=== PATIENT | male | born 1930 | race Caucasian/White ===

== ENCOUNTER 2016-04-27 08:33 | Outpatient (CLI) | payer OTHER ==
--- NOTE | 2016-04-27 11:44 | DIAGNOSTIC IMAGING REPORT ---
PROCEDURE: CT LUMBAR SPINE W/O CONTRAST INDICATION: INCREASE WEAKNESS; DIFFICULTY AMBULATORY TECHNIQUE: Noncontrast axial images with sagittal and coronal reformations. COMPARISON: None available FINDINGS: At L3-4 and L4-5 there is severe spinal stenosis with obliteration of the spinal canal secondary to disc bulge anteriorly and hypertrophy of the posterior elements and ossification of the ligamentum flava. At L2-3 and L5-S1 there is severe canal compromise with retrolisthesis at both levels and hypertrophy of the posterior elements and ligaments with obliteration of the lateral recesses bilaterally. At L1-2 there is a mild annular bulge and hypertrophy of the posterior elements. IMPRESSION: 1. Severe spinal stenosis of with obliteration of spinal canal at the L 3-4 and L4-5. 2. Moderate stenosis at the L2-3 and L5-S1.
== END 2016-04-27 23:00 ==
LOC: CT SRH 08:33 → MRI SRH 09:00 → CT SRH 09:00 → MRI SRH 05-05 15:30
DX: M48.06 Spinal stenosis, lumbar region (principal); M48.07 Spinal stenosis, lumbosacral region

== ENCOUNTER 2016-07-28 14:41 | Emergency (ER) | payer OTHER ==
--- NOTE | 2016-07-28 16:14 | DIAGNOSTIC IMAGING REPORT ---
PROCEDURE: CT ABDOMEN/PELVIS W/O CONTRAST INDICATION: Sudden onset right upper quadrant pain. TECHNIQUE: Noncontrast axial images were obtained of the entire abdomen and pelvis with sagittal and coronal reformations. COMPARISON: None. FINDINGS: ABDOMEN: Lung base are clear. Mild cardiomegaly. Coronary atherosclerosis. Liver measures 15.9 cm with irregular contour and parenchymal inhomogeneity. Spleen measures 10.8 cm. Mild ascites. There are several calcified gallstones, largest of 1.4 cm. The pancreas, adrenal glands and right kidney are normal. Left renal atrophy with several nonobstructing calculi (one - 7 mm). 1.8 cm left renal cyst. Severe atherosclerosis of the aorta and origin of the SMA. Shotty periaortic lymph nodes. Obstipation. Anasarca. PELVIS: Normal appendix. Mild sigmoid diverticulosis. Enlarged prostate (5.5 cm). Normal bladder. Status post right inguinal herniorrhaphy. Severe degenerative changes of the spine. Moderate to severe spinal stenosis from L2-3 to L5-S1. IMPRESSION: 1. Irregular liver contour with mild ascites suggestive of cirrhosis. Liver parenchyma is inhomogeneous and ultrasound of the liver is recommend for further evaluation. The patient is apparently on dialysis which may also account for the free fluid. 2. Cholelithiasis 3. Left renal atrophy with several nonobstructing renal calculi 4. Severe atherosclerosis of the aorta and SMA 5. Anasarca.. This may be secondary to liver disease, renal disease and low albumin 6. Mild sigmoid diverticulosis 7. Obstipation 8. Results discussed with Dr. Joseph All CT scans at this facility use dose modulation, iterative reconstruction, and/or weight-based dosing when appropriate to reduce radiation dose to as low as reasonably achievable.
--- NOTE | 2016-07-28 17:01 | DIAGNOSTIC IMAGING REPORT ---
PROCEDURE: US ABDOMEN ULTRASOUND-LIMITED INDICATION: ABNORMAL LFT TECHNIQUE: Walker scale and color Doppler sonographic images of the abdomen were obtained without comparison. COMPARISON: Abdominal CT 07/28/2016 FINDINGS: The liver is normal in size, contour, and echotexture. No mass or intrahepatic biliary dilatation. The gallbladder contains multiple large mobile stones. The wall is thick measuring 3.4 mm. Positive Hayes's sign. The extrahepatic common duct is normal measuring 5.2 mm The visualized pancreas is normal without ductal dilatation or peripancreatic fluid collection. The retrohepatic inferior vena cava is patent. There is appropriate hepatopetal flow in the portal vein. The right kidney measures 11.1 cm in length. There is ascites. IMPRESSION: 1. Cholelithiasis. 2. Ascites
--- NOTE | 2016-07-28 17:47 | ED ORDER SUMMARY ---
..... Patient: BRAYAN CXO OrderSheet [facility] VisitID: [id number] [place] [address] 86y, M Registration Date/Time: 07/28/2016 ORDER SHEET Weight: 90.7 kg (stated) Allergies: Vasotec GENERAL ORDERS: CT Abd/Pel wo Cont Urgent (15:08 07/28/2016 Pari Rowe) (Ack 15:11 LNations ER Tech1) (15:22 EHassan R.N.) CBC w Diff Urgent (15:08 07/28/2016 Pari Rowe) (15:10 EHassatravis R.N.) CMP Urgent (15:08 07/28/2016 Pari Rowe) (15:10 EHassatravis R.N.) UA-Culture if indicated Urgent (15:08 07/28/2016 Pari Rowe) (Ack 15:11 LNations ER Tech1) (16:09 PWeiler ER Tech1) PT with INR Urgent (15:08 07/28/2016 Pari Rowe) (15:10 GERTRUDEassatravis R.N.) Lipase Urgent (15:08 07/28/2016 Pari Rowe) (15:10 EHassan R.N.) Pulse oximeter (15:08 07/28/2016 Pari Rowe) (15:11 GERTRUDEassatravis R.N.) 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 (19:11 07/28/2016)] [Electronically signed by Teodoro Joseph Dr. (19:10 07/29/2016)] [Electronically locked/signed by Wanda Holbrook R.N. (19:11 07/28/2016)]
--- NOTE | 2016-07-28 17:47 | ED CLINICAL REPORT ---
Clinical Report - Physicians/Mid Levels [facility] [address] [place] [address] 07/28/2016 14:42 Patient: BRAYAN COX Time Seen: 1507. Arrived- By private vehicle. Historian- patient. HISTORY OF PRESENT ILLNESS Chief Complaint: ABDOMINAL PAIN. At its maximum, severity described as moderate. When seen in the E.D., severity described as moderate. Modifying factors- worsened by movement. Not relieved by anything. This started yesterday and is still present (unchanged). It was abrupt in onset and has been constant but is not gone now. It is described as "pain". No radiation. It is described as located in the right abdomen. No nausea, loss of appetite, vomiting or diarrhea. No additional abdominal pain. (states he bent over and felt a pop. states the pain started then. says he is also constipated. on chronic pain medication.). No recent travel. Similar symptoms previously: None. Recent medical care: Not recently seen/assessed. REVIEW OF SYSTEMS No fever or skin rash. All systems otherwise negative, except as recorded above. PAST HISTORY See nurses notes. Medications: Metoprolol Succinate ER Oral 50 mg. Imdur Oral 30 mg, daily. Avapro Oral 300 mg, daily. Lantus Subcutaneous. Hydrocodone-Acetaminophen Oral 5 mg, 2x a day. Neurontin Oral 300 mg, daily. Calcitriol Oral. Lipitor Oral. Aspirin Adult Low Strength Oral. Albuterol Sulfate HFA Inhalation. Allergies: Vasotec. SOCIAL HISTORY Former smoker. No alcohol use or drug use. No recent travel. Is a local resident. ADDITIONAL NOTES The nursing notes have been reviewed. PHYSICAL EXAM Vital Signs: 07/28/2016 14:51 BP: 143/74. HR: 95. RR: 15. O2 saturation: 98%. Temp: 99.1 F. Pain level now: 4/10. Oxygen saturation normal. Appearance: Alert. Oriented X3. No acute distress. (non-toxic). Eyes: Pupils equal, round and reactive to light. Eyes normal inspection. ENT: Ears normal. Nose normal. Pharynx normal. Neck: Normal inspection. Neck supple. CVS: Normal heart rate and rhythm. Heart sounds normal. Pulses normal. Respiratory: No respiratory distress. Breath sounds normal. Chest nontender. Abdomen: Soft. Mild tenderness in the right upper quadrant. Bowel sounds normal. Skin: Skin warm and dry. Normal skin color. No rash. Normal skin turgor. Extremities: Extremities exhibit normal ROM. No lower extremity edema. Neuro: No motor deficit. No sensory deficit. LABS, X-RAYS, AND EKG Abdominal CT: PROCEDURE: CT ABDOMEN/PELVIS W/O CONTRAST INDICATION: Sudden onset right upper quadrant pain. TECHNIQUE: Noncontrast axial images were obtained of the entire abdomen and pelvis with sagittal and coronal reformations. COMPARISON: None. FINDINGS: ABDOMEN: Lung base are clear. Mild cardiomegaly. Coronary atherosclerosis. Liver measures 15.9 cm with irregular contour and parenchymal inhomogeneity. Spleen measures 10.8 cm. Mild ascites. There are several calcified gallstones, largest of 1.4 cm. The pancreas, adrenal glands and right kidney are normal. Left renal atrophy with several nonobstructing calculi (one - 7 mm). 1.8 cm left renal cyst. Severe atherosclerosis of the aorta and origin of the SMA. Shotty periaortic lymph nodes. Obstipation. Anasarca. PELVIS: Normal appendix. Mild sigmoid diverticulosis. Enlarged prostate (5.5 cm). Normal bladder. Status post right inguinal herniorrhaphy. Severe degenerative changes of the spine. Moderate to severe spinal stenosis from L2-3 to L5-S1. IMPRESSION: 1. Irregular liver contour with mild ascites suggestive of cirrhosis. Liver parenchyma is inhomogeneous and ultrasound of the liver is recommend for further evaluation. The patient is apparently on dialysis which may also account for the free fluid. 2. Cholelithiasis 3. Left renal atrophy with several nonobstructing renal calculi 4. Severe atherosclerosis of the aorta and SMA 5. Anasarca.. This may be secondary to liver disease, renal disease and low albumin 6. Mild sigmoid diverticulosis 7. Obstipation. Study type: abdomen and pelvis. Abdominal CT performed without contrast. The study was independently viewed by me and interpreted by the radiologist. The study was discussed with the radiologist (via phone and pacs). Abdominal Sonogram: (PROCEDURE: US ABDOMEN ULTRASOUND-LIMITED INDICATION: ABNORMAL LFT TECHNIQUE: Walker scale and color Doppler sonographic images of the abdomen were obtained without comparison. COMPARISON: Abdominal CT 07/28/2016 FINDINGS: The liver is normal in size, contour, and echotexture. No mass or intrahepatic biliary dilatation. The gallbladder contains multiple large mobile stones. The wall is thick measuring 3.4 mm. Positive Hayes's sign. The extrahepatic common duct is normal measuring 5.2 mm The visualized pancreas is normal without ductal dilatation or peripancreatic fluid collection. The retrohepatic inferior vena cava is patent. There is appropriate hepatopetal flow in the portal vein. The right kidney measures 11.1 cm in length. There is ascites. IMPRESSION: 1. Cholelithiasis. 2. Ascites). The study was independently viewed by me and interpreted by the radiologist. The study was discussed with the radiologist (via pacs). Laboratory Tests: UA-Culture if indicated: (BELEN: 07/28/2016 16:05) ( MsgRcvd 07/28/2016 16:40) Final results Test Result Flag Units (Reference) URINE COLOR YELLOW URINE APPEARANCE CLEAR URINE GLUCOSE TRACE (NEGATIVE) URINE BILIRUBIN NEGATIVE (NEGATIVE) URINE KETONE NEGATIVE (NEGATIVE) URINE SPECIFIC GRAVITY 1.015 (1.010-1.030) URINE PH 8.0 (5.0-8.0) URINE PROTEIN 3+ (NEGATIVE) URINE UROBILINOGEN 2.0 EU/dL (0.2-1.0) The urobilinogen reagent area may react with interferingsubstances known to react with Vinayak's reagent such asp-aminosalicylic acid and sulfonamides. Atypical colorreactions may be obtained in the presence of highconcentrations of p-aminobenzoic acid. The absence ofurobilinogen cannot be determined with this test. URINE NITRITE NEGATIVE (NEGATIVE) URINE BLOOD TRACE-INTACT (NEGATIVE) URINE LEUK ESTERASE NEGATIVE (NEGATIVE) URINE RBC 1-3 rbc/hpf (0-1) URINE WBC 0-1 wbc/hpf (0-1) URINE EPITHELIAL CELLS 0-1 EPI/hpf (0-5) URINE BACTERIA TRACE (<1+) (NONE SEEN) URINE COMMENT CULT NOT INDICATED URINE CULTURES ARE SET-UP BASED ON THE FOLLOWING CRITERIA:POSITIVE NITRITEPOSITIVE LEUKOCYTE ESTERASEGREATER THAN 10 WHITE BLOOD CELLSMODERATE (2+) OR GREATER BACTERIA CBC w Diff: (BELEN: 07/28/2016 15:00) ( [facility] 07/28/2016 15:22) Final results Test Result Flag Units (Reference) WHITE BLOOD COUNT 10.5 K/uL (4.5-11.5) RED BLOOD COUNT 3.73 L M/uL (4.50-5.90) HEMOGLOBIN 12.7 L gm/dL (13.5-17.5) HEMATOCRIT 38.1 L % (41.0-53.0) MEAN CELL VOLUME 102 H fL (80-100) MEAN CORPUSCULAR HGB 34 pg (26-34) MEAN CORPUSCULAR HGB CONC 33 g/dL (31-37) RED CELL DISTRIBUTION WIDTH 16.6 H % (11.6-14.8) PLATELET COUNT 150 K/uL (150-400) NEUTROPHIL % 85.9 H % (50-75) LYMPH % 6.8 L % (25-40) MONO % 7.3 % (3-14) EOSINOPHIL % 0 % (0-4) BASOPHIL % 0 % (0-2) PT with INR: (BELEN: 07/28/2016 15:00) ( [facility] 07/28/2016 15:27) Final results Test Result Flag Units (Reference) INR 1.1 (0.8-1.2) Low Intensity Therapy: INR 1.5-2.0 PT range 18.5-23.1Mod.Intensity Therapy: INR 2.0-3.0 PT range 23.1-31.5High Intensity Therapy: INR 2.5-3.5 PT range 27.4-35.5High Intensity Therapy 2: INR 3.0-4.0 PT range 31.5-39.3 CMP: (BELEN: 07/28/2016 15:00) ( [facility] 07/28/2016 15:35) Final results Test Result Flag Units (Reference) GLUCOSE 130 H mg/dL (70-110) BUN 24 H mg/dL (7-18) CREATININE 2.8 H mg/dL (0.6-1.3) Estimated GFR 23.00 mL/min Estimated GFR- 27.88 mL/min Note: Persistent reduction over 3 months in eGFR<60 mL/min/1.73 m2 defines CKD. Patients with eGFR values>=60 mL/min/1.73 m2 may also have CKD if evidence ofpersistent proteinuria. Additional information may be foundat www.kidney.org. SODIUM 140 mmol/L (136-145) POTASSIUM 3.8 mmol/L (3.5-5.1) CHLORIDE 99 mmol/L (98-107) CARBON DIOXIDE 31 mmol/L (21-32) CALCIUM 8.4 L mg/dL (8.5-10.1) TOTAL PROTEIN 6.8 g/dL (6.4-8.2) ALBUMIN 3.2 L g/dL (3.3-5.0) BILIRUBIN, TOTAL 2.3 H mg/dL (0.0-1.0) ALKALINE PHOSPHATASE 224 H U/L (46-116) AST (SGOT) 40 H U/L (15-37) ALT (SGPT) 28 U/L (12-78) LIPASE 461 H U/L (73-393) . PROGRESS AND PROCEDURES Course of Care: the patient is an 86-year-old male with chronickidney disease and heart failure presenting for evaluation of abdominal pain. At this time differential diagnosis includesbiliary colic versus diverticulitis. Patient did also have renal colic. Because of the patient's chronic kidney disease, unable to perform CT scan with contrast. A dry CT scan was ordered for evaluation of the patient's abdominal pain including laboratory studies and urinalysis. Patient andfamily member agreeable to the treatment plan. The patient's workup was remarkable for the findings above. The patient's CT scan did not show any signs of acute surgical pathology. There was some concern with the appearance of the liver in addition to the elevation in patients liver enzymes. A ultrasound was ordered for evaluation of the patient's abdominal pain and findings on CT scan which required further investigation. Updated family and patient in regards to these findings and are agreeable to the ultrasound. Further pain medication has been offered. Patient continues to be nontoxic and in no acute distress. The patient's workup was remarkable for the findings above. Patient withgallstones however does not have any signs of acute cholecystitis. All patient as been here in the emergency department, his pain has been controlled. Patient reports having no right upper quadrant abdominal pain anymore. Patient is not reporting some discomfort because of the stiff bed. Because of the patient's benign abdominal examination and controlled pain, in addition to his negative workup in the emergency department, do not feel patient requires admission to the hospital or further emergency department evaluation/workup. Patient has a nontender abdominal exam and a nonsurgical abdomen. Patient's studies are otherwise unremarkable as well. Had discussion with the patient in regards to his workup here in the emergency department including diagnosis, home care, follow-up, and return precautions. All questions have been answered. The patient expressed understanding of these instructions and was agreeable to them. Prior to patient's departure from the emergency department is noted to be resting in bed and in no acute distress. Patient is nontoxic. Abdominal exam continues to be reassuring. CLINICAL IMPRESSION Acute right upper quadrant abdominal pain. 07/28/2016 17:08 BP: 126/68. HR: 78. RR: 15. O2 saturation: 98%. Temp: 99.2 F. Pain level now: 7/10. Blood pressure normal. Oxygen saturation normal. INSTRUCTIONS Warnings: GENERAL WARNINGS: Return or contact your physician immediately if your condition worsens or changes unexpectedly, if not improving as expected, or if other problems arise. SPECIFICALLY, return if you develop pain, fever, vomiting, the inability to keep fluids down, blood in vomitus, blood in diarrhea, fainting or lightheadedness. Your Current Medications: CONTINUE TAKING THE FOLLOWING MEDICATIONS: Albuterol Sulfate HFA Inhalation. Aspirin Adult Low Strength Oral. Avapro Oral : 300 mg daily. Calcitriol Oral. Hydrocodone-Acetaminophen Oral : 5 mg 2x a day. Imdur Oral : 30 mg daily. Lantus Subcutaneous. Lipitor Oral. Metoprolol Succinate ER Oral : 50 mg. Neurontin Oral : 300 mg daily. Prescription Medications: Zofran (orally disintegrating tablets) 4 mg: take 1 orally every 8 hours as needed for nausea and vomiting. Dispense ten (10). No refill. Substitution is permissible. Follow-up: Return to the emergency department as needed. Follow up with your doctor in three days. Reason for referral: recheck today's concerns. Summary of care provided to patient via paper. Screening today revealed the patient's blood pressure to be in the normal range. The patient should follow up with a primary care provider for blood pressure management. Understanding of the discharge instructions verbalized by patient. Discharge instructions reviewed (daughter). (Electronically signed by Teodoro Joseph Dr. 07/29/2016 19:10)
--- NOTE | 2016-07-28 17:47 | ED ORDER SUMMARY ---
..... Patient: BRAYAN COX OrderSheet [facility] VisitID: [id number] [place] [address] 86y, M Registration Date/Time: 07/28/2016 ORDER SHEET Weight: 90.7 kg (stated) Allergies: Vasotec GENERAL ORDERS: CT Abd/Pel wo Cont Urgent (15:08 07/28/2016 Pari Rowe) (Ack 15:11 LNations ER Tech1) (15:22 EHassan R.N.) CBC w Diff Urgent (15:08 07/28/2016 Pari Rowe) (15:10 EHassatravis R.N.) CMP Urgent (15:08 07/28/2016 Pari Rowe) (15:10 EHassatravis R.N.) UA-Culture if indicated Urgent (15:08 07/28/2016 Pari Rowe) (Ack 15:11 LNations ER Tech1) (16:09 PWeiler ER Tech1) PT with INR Urgent (15:08 07/28/2016 Pari Rowe) (15:10 GERTRUDEassatravis R.N.) Lipase Urgent (15:08 07/28/2016 Pari Rowe) (15:10 EHassan R.N.) Pulse oximeter (15:08 07/28/2016 Pari Rowe) (15:11 GERTRUDEassatravis R.N.) 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 (19:11 07/28/2016)] [Electronically signed by Teodoro Joseph Dr. (19:10 07/29/2016)] [Electronically locked/signed by Wanda Holbrook R.N. (19:11 07/28/2016)]
--- NOTE | 2016-07-28 17:47 | ED NURSING NOTES ---
Clinical Report - Nurses [place] [address] [place] [address] 07/28/2016 14:42 Patient: BRAYAN COX TRIAGE Triage time 1500 PM. Acuity: LEVEL 3. Chief Complaint: ABDOMINAL PAIN and NAUSEA. Alert. No acute distress. SEPSIS SCREEN: Sepsis Screen. Negative (no infection suspected/documented). --15:08 Wanda Holbrook R.N. 14:51 07/28/16. BP: 143/74 (regular adult cuff) taken on the right arm, via an automated monitor, while lying. HR: 95. RR: 15. O2 saturation: 98%. Temp: 99.1 F (oral). Pain level now: 410. --15:08 Wanda Holbrook R.N. Weight: 90.7 kg stated. Height/Length: 74 inches Per Patient. BMI: 25.7. --14:51 Wanda Holbrook R.N. Medications Albuterol Sulfate HFA Inhalation. --17:02 Wanda Holbrook R.N. Aspirin Adult Low Strength Oral. --17:02 Wanda Holbrook R.N. Lipitor Oral. --17:02 Wanda Holbrook R.N. Calcitriol Oral. --17:03 Wanda Holbrook R.N. Neurontin Oral 300 mg, daily. --17:03 Wanda Holbrook R.N. Hydrocodone-Acetaminophen Oral 5 mg, 2x a day. --17:04 Wanda Holbrook R.N. Lantus Subcutaneous. --17:04 Wanda Holbrook R.N. Avapro Oral 300 mg, daily. --17:04 Wanda Holbrook R.N. Imdur Oral 30 mg, daily. --17:04 Wanda Holbrook R.N. Metoprolol Succinate ER Oral 50 mg. --17:05 Wanda Holbrook R.N. The following entry was struck by Wanda Holbrook R.N., 17:01 (07/28/16) Reason - other. <<STRICKEN ENTRY-- Unable to Obtain. --15:01 Wanda Holbrook R.N. --END STRIKE>>. Allergies Vasotec. --14:56 Wanda Holbrook R.N. Medication/allergy information source: the patient. --15:08 Wanda Holbrook R.N. History Arrived by private vehicle. Historian: patient. Accompanied by family. Primary physician (Dr. Mckenzie). ( Pt was just at Dr. Mckenzie office yesterday, and now is complaining of abdominal pain RLQ, according to pt only is "worst upon movement" pt just came back from dialysis which was told had a low grade fever 99.2 (took blood cultures), as per pt has been having low grade fevers for the past 3-4 days. Denies vomiting, diarrhea, still urinates "which ochoa". Pt does admit of having sores on his buttocks area which were looked at yesterday and was given a cream for. Here for further evaluation. Unable to provide medicines list, will reach out to acquired one.). Onset. (4 days). He has had fever, nausea, constipation and abdominal pain. No vomiting or diarrhea. Last oral intake by patient was breakfast this morning. Treatment HOME HEALTH CARE CASE MANAGER: None. PAST MEDICAL HX: Immunizations: up-to-date. SOCIAL HX: Former smoker, end date 1990. Occasional alcohol use. No drug use. No recent travel. No infectious disease exposure. No known contact with a sick individual. ABUSE ASSESSMENT: No report of abuse. SELF HARM ASSESSMENT: A self harm assessment was performed. The patient answered "no" to the question "Do you have thoughts of harming or killing yourself?" and "Have you recently had thoughts about harming or killing others?". FALL RISK ASSESSMENT: Fall risk assessment completed. No fall risk identified. NUTRITIONAL RISK ASSESSMENT: The nutritional risk assessment revealed no deficiencies. FUNCTIONAL ASSESSMENT: Functional assessment: no impairments noted. LEARNING NEEDS ASSESSMENT: The learning needs assessment revealed no barriers. SKIN INTEGRITY ASSESSMENT: Skin integrity risk assessment completed. No skin integrity risk identified. --15:08 Wanda Holbrook R.N. PROBLEMS: Arthritis. Back Pain. Neuropathy. Heart Failure. Chronic kidney disease stage 4. Diabetes Mellitus Type 2. Hypertension. --15:01 Wanda Holbrook R.N. Afib. --15:13 Wanda Holbrook R.N. Asthma. Hyperplastic polyp of intestine. Tubular adenoma. GERD. Anemia. Hyperlipidemia. --17:08 Wanda Holbrook R.N. ADDITIONAL SURGERIES: Fistula . Hernia Repair. Knee replacement b/l. Rhinoplasty. Tonsillectomy. --15:01 Wanda Holbrook R.N. Interventions ID band on patient. --15:08 Wanda Holbrook R.N. PHYSICAL ASSESSMENT To room via wheelchair. GENERAL / NEURO / PSYCH: Alert. Oriented X 4. HEENT: Mucous membranes are pink. RESPIRATORY: Respirations not labored. Breath sounds within normal limits. CVS: Capillary refill less than 2 seconds. GI / : Abdomen soft and nontender. Bowel sounds within normal limits. SKIN: Skin is warm and dry. --15:09 Wanda Holbrook R.N. NURSING PROGRESS NOTES The initial plan of care for this patient has been created This plan of care was discussed with the patient and family. Pulse oximeter and NIBP monitor placed on patient; monitor alarms on. Patient gowned. Warming measures: blanket applied. Reassurance given. Two patient identifiers checked. Call light placed in reach. Side rails up. Bed placed in lowest position. --15:10 Wanda Holbrook R.N. 15:01 07/28/2016 Site #1 started via IV in the right antecubital space with an 18g angiocath. Blood drawn: rainbow set. Labeled in the presence of the patient and sent to the lab. --15:11 Wanda Holbrook R.N. Patient transported to [place]. (1523 PM). --15:23 Wanda Holbrook R.N. 15:17 07/28/2016 Site #2 accessed indwelling dialysis catheter in the left upper arm (FIstula line). --15:32 Wanda Holbrook R.N. 15:22 07/28/2016 Morphine IVP 4 mg given over 30 second(s) via site #1. Allergies verified, confirmed 5 rights and sedative warning given to the patient. IV patency established. IV site checked: no pain, redness, or swelling. IV flushed thoroughly pre- and post-medication administration. IVP given by RN. --15:22 Wanda Holbrook R.N. ( Left fistula noted, just accessed prior to ED visit. +bruit +thrill). --15:33 Wanda Holbrook R.N. The patient reports no complaints and he is calm and resting quietly. ( given urinal, advised pt we need urine sample). --15:55 Sulma Viera R.N. Cardiac rhythm: normal sinus rhythm; frequent PACs. turn supervisor, pulse oximeter and NIBP monitor placed on patient; monitor alarms on. Reassurance given. The patient is resting quietly. Overall patient status is the same- he states feels the same. ( US in room, pt '"would like a bit more pain meds" Will notify Dr. Nogueira). GI / : The patient reports abdominal pain. Denies nausea, diarrhea or vomiting. Abdomen soft. Call light placed in reach. --16:22 Wanda Holbrook R.N. 16:00 07/28/16. BP: 140/81 (regular adult cuff) taken on the right arm, via an automated monitor, while lying. HR: 103 (irregularly-irregular). RR: 15. O2 saturation: 96% on room air. Temp: 99.2 F (oral). Pain level now: 510. --16:22 Wanda Holbrook R.N. 16:00. Patient ID band checked for patient name: patient confirmed. Instructions provided to collect clean catch urine and patient verbalized understanding. Clean catch urine collected with return of yellow-colored brendan-colored clear urine; sample sent to lab for urinalysis and culture. Specimen labeled in the presence of the patient. --16:34 Elva Rehman R.N. 16:00 07/28/2016 Morphine IVP Response: no adverse reaction symptoms have improved the patient feels better. --18:13 Wanda Holbrook R.N. <<STRICKEN ENTRY-- 16:22 07/28/2016 Site #2 removed upon discharge. Catheter intact. Bandaid applied. --16:32 Elva Rehman R.N. --END STRIKE>> Charted on wrong patient. --16:33 Elva Rehman R.N. 16:59 07/28/2016 Morphine IVP 4 mg given over 1 minute(s) via site #1. Allergies verified, confirmed 5 rights and sedative warning given to the patient. IV patency established. IV site checked: no pain, redness, or swelling. IV flushed thoroughly pre- and post-medication administration. IVP given by RN. --16:59 Elva Rehman R.N. 17:08 07/28/16. BP: 126/68 (regular adult cuff) taken on the right arm, via an automated monitor, while lying. HR: 78. RR: 15. O2 saturation: 98%. Temp: 99.2 F. Pain level now: 08/31. --17:40 Wanda Holbrook R.N. Cardiac rhythm: normal sinus rhythm. turn supervisor, pulse oximeter and NIBP monitor placed on patient. Reassurance given. ( Attempted to repositioned pt multiple times for comfort, pain noted to be on right hip/lower abdominal area. Pt noted to have a small breakdown on left mid buttock area as well as redness stage 2 non-blanching on both cheeks, dressing placed and support with pillows given to be off site. Will monitor). GI / : The patient reports abdominal pain. Call light placed in reach. --17:40 Wanda Holbrook R.N. 17:30 07/28/2016 Morphine IVP Response: no adverse reaction symptoms have improved the patient feels better. --18:12 Wanda Holbrook R.N. DISPOSITION / DISCHARGE 18:01 07/28/2016 Site #1 removed upon discharge. Manual pressure, pressure dressing, bandaid and bandage applied. --18:11 Wanda Holbrook R.N. 18:07/28/2016 Site #2 removed upon discharge (Fistula intact). --18:11 Wanda Holbrook R.N. Cardiac rhythm: normal sinus rhythm; PACs. Departure time: 1805 PM. Condition at departure: improved and stable. The goals identified in the patient's plan of care were met. No learning barriers present. Discharge instructions provided and reviewed with the patient and family. Reviewed medication(s) side effects, precautions, dosing and course information. Prescription(s) given to the patient. Patient verbalized understanding. Written instructions provided in Korean. No treatment instructions or referrals given to the patient. The patient was discharged home and accompanied by family. He left the Emergency Department in a wheelchair and via private vehicle. Family member driving. FALL RISK ASSESSMENT: Fall risk assessment completed. No fall risk identified. --18:12 Wanda Holbrook R.N. 18:00 07/28/16. BP: 146/88. HR: 78. RR: 14. O2 saturation: 97% on room air. Temp: 98.1 F (oral). Pain level now: 06/01. --18:12 Wanda Holbrook R.N. Locked/Released at 07/28/2016 19:11 by Wanda Holbrook R.N.
--- NOTE | 2016-07-29 19:10 | ED DISCHARGE INSTRUCTIONS ---
Patient: BRAYAN COX General Instructions [facility] VisitID: [id number] [place] [address] 86y, M Registration Date/Time: 07/28/2016 Acute right upper quadrant abdominal pain. 07/28/2016 17:08 BP: 126/68. HR: 78. RR: 15. O2 saturation: 98%. Temp: 99.2 F. Pain level now: 7/10. Blood pressure normal. Oxygen saturation normal. INSTRUCTIONS Warnings: GENERAL WARNINGS: Return or contact your physician immediately if your condition worsens or changes unexpectedly, if not improving as expected, or if other problems arise. SPECIFICALLY, return if you develop pain, fever, vomiting, the inability to keep fluids down, blood in vomitus, blood in diarrhea, fainting or lightheadedness. Your Current Medications: CONTINUE TAKING THE FOLLOWING MEDICATIONS: Albuterol Sulfate HFA Inhalation. Aspirin Adult Low Strength Oral. Avapro Oral : 300 mg daily. Calcitriol Oral. Hydrocodone-Acetaminophen Oral : 5 mg 2x a day. Imdur Oral : 30 mg daily. Lantus Subcutaneous. Lipitor Oral. Metoprolol Succinate ER Oral : 50 mg. Neurontin Oral : 300 mg daily. Prescription Medications: Zofran (orally disintegrating tablets) 4 mg: take 1 orally every 8 hours as needed for nausea and vomiting. Dispense ten (10). No refill. Substitution is permissible. Follow-up: Return to the emergency department as needed. Follow up with your doctor in three days. Reason for referral: recheck today's concerns. Summary of care provided to patient via paper. Screening today revealed the patient's blood pressure to be in the normal range. The patient should follow up with a primary care provider for blood pressure management. Understanding of the discharge instructions verbalized by patient. Discharge instructions reviewed (daughter). ADDITIONAL INFORMATION Abdominal Pain,Uncertain Cause [Male] Based on your visit today, the exact cause of your abdominalpain is not clear. Your exam and tests do not indicate a dangerous cause at this time. However, the signs of a serious problem may take more time to appear. Although your evaluation was reassuring today, sometimes early in the course of many conditions, exam and lab tests can appear normal. Therefore, it is important for you to watch for any new symptoms or worsening of your condition. Causes It may not be obvious what caused your symptoms. Pay attention to things that do seem to make your symptoms worse or better and discuss this with your doctor when you follow up. Diagnosis The evaluation of abdominal pain in the emergency department may onlyrequire an exam by the doctor or it may include blood, urine or imaging studies, depending on many factors. Sometimes exams and tests can identify a cause but in many cases, a clear cause is not found. Further testing at follow up visits may help to suggest a clear diagnosis. Home Care Rest as much as possible until your next exam. Try to avoid any medications (unless otherwise directed by your doctor), foods, activities, or other factors that you may have contributed to your symptoms. Try to eat foods that you know that you have tolerated well in the past. Certain diets may be recommended for some conditions that cause abdominal pain. However, since the cause of your symptoms may not be clear, discuss your diet more with your primary care provider or specialist for further recommendations. Eating several small meals per day as opposed to 2 or 3 larger meals may help. Monitor closely for anything that may make your symptoms worse or better. Pay close attention to symptoms below that may indicate worsening of your condition. Follow Up and Precautions See your doctoras instructed or sooneror if your symptoms are not improving.In some cases, you may need more testing. When to Seek Medical Attention Contact your doctor or see medical attention ifany of the following occur: Pain is becoming worse You are unable to take your medications due to excessive vomiting Swelling of the abdomen Fever of 100.4F (38C) or higher, or as directed by your health care provider Blood in vomit or bowel movements (dark red or black color) Jaundice (yellow color of eyes and skin) New onset of weakness, dizziness or fainting New onset of chest, arm, back, neck or jaw pain Ondansetron Oral disintegrating tablet What is this medicine? ONDANSETRON (on CHRIS se bell) is used to treat nausea and vomiting caused by chemotherapy. It is also used to prevent or treat nausea and vomiting after surgery. How should I use this medicine? These tablets are made to dissolve in the mouth. Do not try to push the tablet through the foil backing. With dry hands, peel away the foil backing and gently remove the tablet. Place the tablet in the mouth and allow it to dissolve, then swallow. While you may take these tablets with water, it is not necessary to do so. Talk to your cnc grinder regarding the use of this medicine in children. Special care may be needed. What side effects may I notice from receiving this medicine? Side effects that you should report to your doctor or health assisted living care manager as soon as possible: allergic reactions like skin rash, itching or hives, swelling of the face, lips, or tongue breathing problems dizziness fast or irregular heartbeat feeling faint or lightheaded, falls fever and chills swelling of the hands and feet tightness in the chest Side effects that usually do not require medical attention (report to your doctor or health assisted living care manager if they continue or are bothersome): constipation or diarrhea headache What may interact with this medicine? Do not take this medicine with any of the following medications: -apomorphine -cisapride -dofetilide -dronedarone -pimozide -thioridazine -ziprasidone This medicine may also interact with the following medications: -carbamazepine -phenytoin -rifampicin -tramadol -other medicines that prolong the QT interval (cause an abnormal heart rhythm) What if I miss a dose? If you miss a dose, take it as soon as you can. If it is almost time for your next dose, take only that dose. Do not take double or extra doses. Where should I keep my medicine? Keep out of the reach of children. Store between 2 and 30 degrees C (36 and 86 degrees F). Throw away any unused medicine after the expiration date. What should I tell my health care provider before I take this medicine? They need to know if you have any of these conditions: heart disease history of irregular heartbeat liver disease low levels of magnesium or potassium in the blood an unusual or allergic reaction to ondansetron, granisetron, other medicines, foods, dyes, or preservatives or trying to get breast-feeding What should I watch for while using this medicine? Check with your doctor or health assisted living care manager as soon as you can if you have any sign of an allergic reaction. You have been given the following additional information: Abdominal Pain, Unknown Cause, (Male) Ondansetron Oral disintegrating tablet (Electronically signed by Teodoro Joseph Dr. 07/29/2016 19:10)
--- NOTE | 2016-07-29 19:11 | ED MED RECONCILIATION SUMMARY ---
Patient: BRAYAN COX Medication Reconciliation Report [facility] VisitID: [id number] [address] [place] [address] 86y, M Registration Date/Time: 07/28/2016 Weight: 90.7 kg Height/Length: 74 in. BMI: 25.7 ALLERGIES: Vasotec The patient's Home Medications are listed below: CONTINUE TAKING THE FOLLOWING MEDICATIONS: Albuterol Sulfate HFA Inhalation Aspirin Adult Low Strength Oral Avapro Oral 300 mg, daily Calcitriol Oral Hydrocodone-Acetaminophen Oral 5 mg, 2x a day Imdur Oral 30 mg, daily Lantus Subcutaneous Lipitor Oral Metoprolol Succinate ER Oral 50 mg Neurontin Oral 300 mg, daily The source(s) of the original Home Medication information: patient The following Medications were given to the patient in the Emergency Department: Morphine [IVP] IVP 4 mg, administered: 07/28/2016 3:22:00 PM Morphine [IVP] IVP 4 mg, administered: 07/28/2016 4:59:00 PM The following Medications were prescribed to the patient: Zofran (orally disintegrating tablets) 4 mg: take 1 orally every 8 hours as needed for nausea and vomiting. Dispense ten (10). No refill. Substitution is permissible. -- Teodoro Joseph Dr.
--- NOTE | 2016-07-29 19:11 | ED MAR SUMMARY ---
..... Medication Administration Record [facility] [address] [place] [address] Patient: BRAYAN COX Visit ID: [id number] 86y, M Weight: 90.7 kg Height/Length: 74 in BMI: 25.7 ALLERGIES: Vasotec Given 15:22 07/28/2016 Wanda Holbrook R.N. Medication Administered: MORPHINE [IVP], Dose: 4 mg IVP over 30 second(s), Site: #1 right AC. Medication Ordered: Morphine IV 4 mg (HIGH ALERT MEDICATION, NOW). Given 16:59 07/28/2016 Elva Rehman R.N. Medication Administered: MORPHINE [IVP], Dose: 4 mg IVP over 1 minute(s), Site: #1 right AC. Medication Ordered: Morphine IV 4 mg (HIGH ALERT MEDICATION, NOW).
--- NOTE | 2016-07-29 19:11 | ED MAR SUMMARY ---
..... Medication Administration Record [facility] [address] [place] [address] Patient: BRAYAN COX Visit ID: [id number] 86y, M Weight: 90.7 kg Height/Length: 74 in BMI: 25.7 ALLERGIES: Vasotec Given 15:22 07/28/2016 Wanda Holbrook R.N. Medication Administered: MORPHINE [IVP], Dose: 4 mg IVP over 30 second(s), Site: #1 right AC. Medication Ordered: Morphine IV 4 mg (HIGH ALERT MEDICATION, NOW). Given 16:59 07/28/2016 Elva Rehman R.N. Medication Administered: MORPHINE [IVP], Dose: 4 mg IVP over 1 minute(s), Site: #1 right AC. Medication Ordered: Morphine IV 4 mg (HIGH ALERT MEDICATION, NOW).
--- NOTE | 2016-07-29 19:11 | ED MED RECONCILIATION SUMMARY ---
Patient: BRAYAN COX Medication Reconciliation Report [facility] VisitID: [id number] [address] [place] [address] 86y, M Registration Date/Time: 07/28/2016 Weight: 90.7 kg Height/Length: 74 in. BMI: 25.7 ALLERGIES: Vasotec The patient's Home Medications are listed below: CONTINUE TAKING THE FOLLOWING MEDICATIONS: Albuterol Sulfate HFA Inhalation Aspirin Adult Low Strength Oral Avapro Oral 300 mg, daily Calcitriol Oral Hydrocodone-Acetaminophen Oral 5 mg, 2x a day Imdur Oral 30 mg, daily Lantus Subcutaneous Lipitor Oral Metoprolol Succinate ER Oral 50 mg Neurontin Oral 300 mg, daily The source(s) of the original Home Medication information: patient The following Medications were given to the patient in the Emergency Department: Morphine [IVP] IVP 4 mg, administered: 07/28/2016 3:22:00 PM Morphine [IVP] IVP 4 mg, administered: 07/28/2016 4:59:00 PM The following Medications were prescribed to the patient: Zofran (orally disintegrating tablets) 4 mg: take 1 orally every 8 hours as needed for nausea and vomiting. Dispense ten (10). No refill. Substitution is permissible. -- Teodoro Joseph Dr.
== END 2016-07-28 18:05 | disposition home or self-care (01) ==
LOC: ED SRH 14:41
DX: R10.11 Right upper quadrant pain (principal); I13.0 Hypertensive heart and chronic kidney disease with heart failure and stage 1 through stage 4 chronic kidney disease, or unspecified chronic kidney disease; I50.9 Heart failure, unspecified; N18.4 Chronic kidney disease, stage 4 (severe); E11.21 Type 2 diabetes mellitus with diabetic nephropathy; Z79.4 Long term (current) use of insulin; I48.91 Unspecified atrial fibrillation; K21.9 Gastro-esophageal reflux disease without esophagitis; E78.5 Hyperlipidemia, unspecified; J45.909 Unspecified asthma, uncomplicated
CPT/HCPCS: 90004; 90074; 90100; 92235; 94060; 95059